=== PATIENT | female | born 2000 | race African-American/Black ===

== ENCOUNTER 2021-01-03 14:34 | Emergency (ER) | payer OTHER ==
[~2021-01-03] VITALS: Ht 170.2 cm; Wt 48.6 kg
[2021-01-03 14:43] VITALS: BP 113/75; TEMP 99
[2021-01-03] MEDS ORDERED: ESTRACE0.1 MG/GM VG (16:16)
[2021-01-03 16:46] VITALS: PULSE 63
== END 2021-01-03 16:46 | disposition home or self-care (01) ==
LOC: COL.ER 14:34
DX: S31.41XA Laceration without foreign body of vagina and vulva, initial encounter (principal); X58.XXXA Exposure to other specified factors, initial encounter